=== PATIENT | female | born 1965 | race Caucasian/White ===

== ENCOUNTER → 2017-01-03 18:00 | Outpatient (CLI) | payer MEDICAID ==
[2015-01-07 05:56] VITALS: BMI 27.6
[~2017-01-03 18:00] MED LIST: BUPRENORPHINE HC8 MG SL; ESTRACE 0.5 MG0.5 MG PO
== END | disposition home or self-care (01) ==
LOC: D.MAMMO 16:15
DX: Z12.31 Encounter for screening mammogram for malignant neoplasm of breast (principal)

== ENCOUNTER 2018-06-06 08:28 | Observation (INO) | payer MEDICAID ==
[~2018-06-06] VITALS: Ht 165.1 cm; Wt 72.7 kg
[2018-06-06] MEDS ORDERED: BUPRENORPHIN-N1 EACH SL (08:55)
[2018-06-06 12:05] LABS: BASOPHILS 0 % (0-2); EOSINOPHILS 4.8 % (0-7); HEMATOCRIT 40.9 % (36.0-48.0); HEMOGLOBIN 13.5 g/dL (12-16); IMMATURE GRANULOCYTES 0.2 % (0-5); LYMPHOCYTES 16.7 % (15-50); MCH 28.8 pg (26.0-34.0); MCV 87.2 fL (80.0-100.0); MEAN PLATELET VOLUME 9.7 fL (7.4-10.4); MONOCYTES 1.6 % (2-11); NEUTROPHILS 76.7 % (40-80); PLATELET COUNT 203 10x3/uL (130-400); RBC 4.69 10x6/uL (4.00-5.40); RDW 13.5 % (11.5-14.5); WBC 5.2 10x3/uL (4.8-10.8)
[2018-06-06 12:26] LABS: ALBUMIN 3.9 g/dL (3.4-5.0); ANION GAP 13.8 mmol/L (8-16); BILIRUBIN - TOTAL 0.65 mg/dL (0.2-1.3); CALCIUM 9.5 mg/dL (8.5-10.1); CARBON DIOXIDE 28.8 mmol/L (21.0-32.0); CREATININE - SERUM 0.9 mg/dL (0.6-1.3); POTASSIUM - SERUM 3.6 mmol/L (3.5-5.1); PROTEIN - SERUM 8.3 g/dL (6.4-8.2)
[2018-06-06 12:44] VITALS: BP 160/90
[2018-06-06 15:23] VITALS: BP 144/84; Ht 165.1 cm; Wt 72.7 kg
[2018-06-06 22:28] VITALS: BP 177/108
[2018-06-07 04:47] LABS: BASOPHILS 0 % (0-2); EOSINOPHILS 0 % (0-7); HEMATOCRIT 40.6 % (36.0-48.0); HEMOGLOBIN 13.3 g/dL (12-16); IMMATURE GRANULOCYTES 0.2 % (0-5); LYMPHOCYTES 6.4 % (15-50); MCH 28.3 pg (26.0-34.0); MCHC 32.8 g/dL (31.0-37.0); MCV 86.4 fL (80.0-100.0); MEAN PLATELET VOLUME 9.9 fL (7.4-10.4); MONOCYTES 0.4 % (2-11); PLATELET COUNT 225 10x3/uL (130-400); RDW 13.4 % (11.5-14.5)
[2018-06-07 04:57] LABS: WBC 11.5 10x3/uL (4.8-10.8)
[2018-06-07 04:59] VITALS: BP 128/84
[2018-06-07 05:10] LABS: ANION GAP 14.4 mmol/L (8-16); BILIRUBIN - TOTAL 0.56 mg/dL (0.2-1.3); CALCIUM 10.1 mg/dL (8.5-10.1); CARBON DIOXIDE 29.3 mmol/L (21.0-32.0); CREATININE - SERUM 0.9 mg/dL (0.6-1.3); POTASSIUM - SERUM 3.7 mmol/L (3.5-5.1); PROTEIN - SERUM 8.3 g/dL (6.4-8.2)
[2018-06-07 06:58] VITALS: BP 142/90
[2018-06-07] MEDS ORDERED: FEXOFENADINE H180 MG PO (11:37)
[2018-06-07] MEDS ORDERED: PEPCID40 MG PO (11:38)
[2018-06-07] MEDS ORDERED: PREDNISONE10 MG PO (11:38)
[2018-06-07] MEDS ORDERED: EPIPEN JR0.15 MG/01 IM (12:32)
== END 2018-06-07 14:24 | disposition home or self-care (01) ==
LOC: D.ER 08:28 → D.EDHOLD 11:55 → OBSVTIME 11:55 → D.MS 11:55
PROVIDERS: Family Medicine
DX: T78.3XXA Angioneurotic edema, initial encounter (principal); I10 Essential (primary) hypertension; E11.9 Type 2 diabetes mellitus without complications

== ENCOUNTER 2020-12-01 14:45 | Outpatient (CLI) | payer MEDICAID ==
[2020-09-20 14:10] VITALS: BMI 24.8
[~2020-12-01 14:45] MED LIST changes: +ACETAMINOPHEN500 M1 PO; +BUPRENORPHIN-N1 EACH SL; +COLACE100 MG PO; +EPIPEN JR0.15 MG/01 IM; +FEXOFENADINE H180 MG PO; +MIRALAX17 GM PO; +OXYIR5 MG PO; +PEPCID40 MG PO; +PREDNISONE10 MG PO; +PROTONIX40 MG PO; +TESSALON PERLE100 MG PO; +ZANAFLEX2 M1 PO
== END 2020-12-01 23:59 | disposition home or self-care (01) ==
LOC: D.MAMMO 14:45
PROVIDERS: ATTEND Family Medicine
DX: Z12.31 Encounter for screening mammogram for malignant neoplasm of breast (principal)